=== PATIENT | male | born 1970 | race Caucasian/White ===

== ENCOUNTER 2022-09-03 14:20 | Emergency (ER) | payer OTHER ==
[2022-09-03 15:00] VITALS: BP 142/94; PULSE 57; RESP 18; TEMP 97.6; BMI 31.4
[2022-09-03] MEDS ORDERED: LIDOCAINE 5% TOPICAL PATCH TP ONE (15:33)
[2022-09-03] MEDS ORDERED: IBUPROFEN 600 MG TABLET (FP) PO ONE ×2 (15:33→15:41)
[2022-09-03] MEDS ORDERED: METHOCARBAMOL 500 MG TABLET PO ONE (15:34)
[2022-09-03] MEDS ORDERED: LIDOCAINE 5% TOPICAL PATCH ONE (15:41)
[2022-09-03] MEDS ORDERED: METHOCARBAMOL 500 MG TABLET ONE (15:41)
[2022-09-03] MEDS ORDERED: LIDOCAINE PATCH REMOVAL MC SCH (22:00)
== END 2022-09-03 17:12 | disposition home or self-care (01) ==
LOC: FER 14:20
DX: M54.50 Low back pain, unspecified (principal)
CPT/HCPCS: 73502-TC-LT-FY; 99281-25

== ENCOUNTER 2023-07-11 12:04 | Observation (INO) | payer OTHER ==
[2023-07-11 12:30] LABS: HEMATOCRIT 45.4 % (35.4-49); HEMOGLOBIN 15.5 G/dL (11.7-16.9); MCH 31.6 pg (25.7-33.7); MCHC 34.1 g/dl (32.0-35.9); MEAN CELL VOLUME 92.7 fl (80-96); MEAN PLT VOLUME 8.6 fl (7.5-11.1); PLATELET COUNT 170.5 10^3/uL (134-434); RDW 14.2 % (11.9-15.9); WHITE BLOOD COUNT 8.3 10^3/uL (4.0-10.8)
[2023-07-11] MEDS ORDERED: FAMOTIDINE 20 MG/50 ML IVPB 20 MG/50 ML MG IVPB ONE ×2 (12:45→13:10)
[2023-07-11] MEDS ORDERED: ACETAMINOPHEN 1000 MG/100 ML BAG IVPB ONE (12:45)
[2023-07-11] MEDS ORDERED: MAG HYDROX/AL HYDROX/SIMETH 30 ML UNIT-DOSE CUP PO ONE (12:45)
[2023-07-11 12:50] LABS: ALBUMIN 4.6 g/dl (3.4-5.0); BILIRUBIN,TOTAL 0.4 mg/dl (0.2-1); BLOOD UREA NITROGEN 11.5 mg/dl (7-18); CALCIUM 9.3 mg/dl (8.5-10.1); CREATININE 0.7 mg/dl (0.6-1.3); MAGNESIUM 1.9 mg/dL (1.8-2.4); POTASSIUM 3.7 mmol/L (3.5-5.1); SGPT/ALT 17.4 U/L (7-52); TOT PROT 7.1 g/dl (6.4-8.2)
[2023-07-11 12:52] LABS: INR 1.07 (0.83-1.09); PROTHROMBIN TIME (PATIENT) 12.4 SEC (9.7-13.0)
[2023-07-11 12:54] LABS: ACTIVATED PTT 34.8 SECONDS (25.2-36.5)
[2023-07-11] MEDS ORDERED: ACETAMINOPHEN INJECTION 100 ML IVPB ONE (13:10)
[2023-07-11] MEDS ORDERED: MAG HYDROX/AL HYDROX/SIMETH 30 ML UNIT-DOSE CUP ONE (13:10)
[2023-07-11] MEDS ORDERED: ACETAMINOPHEN 500 MG TABLET (FP) PO PRN (14:32)
[2023-07-11] MEDS ORDERED: NITROGLYCERIN SUBLINGUAL 1/200 0.3 MG BTL SL PRN (14:43)
[2023-07-11 21:27] VITALS: BMI 33.3
[2023-07-11] MEDS: METOPROLOL TARTRATE 25 MG TABLET (FP) PO SCH (21:50)
[2023-07-11] MEDS ORDERED: ATORVASTATIN CA 40 MG TABLET (FP) PO SCH (22:00)
[2023-07-12 09:05] LABS: CALCIUM 9.2 mg/dl (8.5-10.1); CREATININE 0.7 mg/dl (0.6-1.3); POTASSIUM 4.2 mmol/L (3.5-5.1)
[2023-07-12] MEDS: METOPROLOL TARTRATE 25 MG TABLET (FP) PO SCH (09:18)
[2023-07-12 09:22] VITALS: RESP 18
[2023-07-12] MEDS ORDERED: CLOPIDOGREL BISULFATE 75 MG TABLET (FP) PO SCH (10:00)
[2023-07-12] MEDS ORDERED: LISINOPRIL 5 MG TABLET PO SCH (10:00)
[2023-07-12 10:11] LABS: BASO % 0.3 % (0-2.0); EOS % 1.7 % (0-4.5); HEMATOCRIT 44.2 % (35.4-49); HEMOGLOBIN 14.7 GM/dL (11.7-16.9); LYMPH % 39.2 % (8-40); MCH 30.5 pg (25.7-33.7); MCHC 33.4 g/dl (32.0-35.9); MEAN CELL VOLUME 91.5 fl (80-96); MONO % 7.4 % (3.8-10.2); NEUT % 51.4 % (42.8-82.8); PLATELET COUNT 188 10^3/uL (134-434); RBC 4.83 M/mm3 (4.00-5.60); RDW 13.9 % (11.9-15.9); WHITE BLOOD COUNT 8.4 K/mm3 (4.0-10.0)
[2023-07-12] MEDS ORDERED: ASPIRIN 81 MG CHEWABLE TABLETS PO SCH (11:30)
[2023-07-12 19:00] VITALS: BP 131/75; PULSE 65; TEMP 97.5
== END 2023-07-12 20:00 | disposition short-term general hospital (02) ==
LOC: FER 12:04 → UNDOADMOB 13:37 → INTOOBSV 13:37 → FM/S 13:37
PROVIDERS: ADMIT Internal Medicine
PROC: 3E033NZ Introduction of Analgesics, Hypnotics, Sedatives into Peripheral Vein, Percutaneous Approach (ICD-10-PCS; principal; 2023-07-11)
PROC: 3E033GC Introduction of Other Therapeutic Substance into Peripheral Vein, Percutaneous Approach (ICD-10-PCS; 2023-07-11)
DX: I25.10 Atherosclerotic heart disease of native coronary artery without angina pectoris (principal); I11.0 Hypertensive heart disease with heart failure; R07.89 Other chest pain; R77.8 Other specified abnormalities of plasma proteins; Z95.5 Presence of coronary angioplasty implant and graft; I25.2 Old myocardial infarction; E78.00 Pure hypercholesterolemia, unspecified; M54.9 Dorsalgia, unspecified; F17.200 Nicotine dependence, unspecified, uncomplicated
CPT/HCPCS: 36415; 71045-TC-FY; 80048; 80053; 83735; 84484; 85025; 85027; 85610; 85730; 87635; 93005; 93306-TC; 96365; 96375; 99285-25; G0378